=== PATIENT | female | born 1945 | race African-American/Black ===

== ENCOUNTER 2021-06-05 17:11 | Emergency (ER) | payer OTHER ==
[~2021-06-05] VITALS: Ht 157.5 cm; Wt 45.4 kg
--- NOTE | ~2021-06-05 | EMS ---
[address] [address] EMS Patient Care Report Name: KIRT PEACOCK Room #: DEP ARIEL Colón#: [id number] Admission: 06/05/21 Attend Phys: Discharge: 06/05/21 Date of : 47 Report #: [id number] THIS REPORT FOR: //name// Report Transmitted: 06/07/2021 10:16 EMS Care Summary [place], [place]/[facility] Incident [id number] @ 06/05/2021 16:52 Incident Location [facility] [address] [facility] Patient KIRT PEACOCK Female, 76 Years 1945 Patient Address [facility] [id number] [place] [address] Patient History Dialysis, Chief Complaint dialysis site bleeding Disposition Transported No Lights/Baxter Dispatch Reason Hemorrhage/Laceration Transported To [facility] Narrative Arrived to find pt sitting in chair in dialysis clinic. RN stated pt finished her dialysis at 1530 and her site was still bleeding. RN has a clamp on it and there is no bleeding around clamp. Pt has nasal cannula in however pt states it is only for during her treatment. Pt stands and sits on cot where she is secured with cot straps. Pt is in surgical mask. Pt placed in back of unit and transported without incident. Care to RN. [address] [address] EMS Patient Care Report Name: KIRT PEACOCK Room #: DEP [facility]#: [id number] Admission: 06/05/21 Attend Phys: Discharge: 06/05/21 Date of : 47 Report #: [id number] Initial Vitals @17:03P: 83,BP: 187/105,SpO2: 99, @17:04P: 84,R: 18,BP: 184/83,Pain: 0/10,GCS: 15,Glucose: 193,CO: 2,SpO2: 100,Revised Trauma: 12, Assessments @17:01MENTAL:Place Oriented,Time Oriented,Person Oriented,Event Oriented,SKIN:HEENT:Head/Face: No Abnormalities,Eyes: No Abnormalities,Neck/Airway: No Abnormalities,LUNG SOUNDS:General: No Abnormalities,Left Upper: No Abnormalities,Right Upper: No Abnormalities,Left Lower: No Abnormalities,Right Lower: No Abnormalities,ABDOMEN:General: No Abnormalities,Left Upper: No Abnormalities,Right Upper: No Abnormalities,Left Lower: No Abnormalities,Right Lower: No Abnormalities,PELVIS//GI:No Abnormalities,EXTREMITIES:Left Arm: Other,Right Arm: No Abnormalities,Left Leg: No Abnormalities,Right Leg: No Abnormalities,PULSE:NEURO:No Abnormalities, Impression Hemorrhage Procedures @17:01 ALS Assessment Response: UnchangedSucceeded Timeline 16:50,Call Received 16:50,Dispatch Notified 16:52,Dispatched 16:53,En Route 16:58,On Scene 17:00,At Patient 17:01,ALS Assessment,Response: UnchangedSucceeded, 17:03,BP: 187/105 M,PULSE: 83,RR: R,SPO2: 99 Ox,ETCO2: ,BG: ,PAIN: ,GCS: , 17:04,BP: 184/83 M,PULSE: 84,RR: 18 R,SPO2: 100 Ox,ETCO2: ,B,PAIN: 0,GCS: 15, 17:06,Depart Scene 17:09,At Destination 17:17,Call Closed Disclaimer v1.1 Copyright 2021 [employer] This EMS Care Summary contains data elements from the applicable legal record (which may be displayed differently). It is designed to provide pertinent information for the following purposes: continuity of care, clinical quality, and state data reporting. The complete legal record is available to ED staff and administrators of the receiving hospital in [employer] Patient Tracker. All data is provided "as is."
[2021-06-05 19:38] VITALS: BP 169/66
== END 2021-06-05 20:11 | disposition home or self-care (01) ==
LOC: ER 17:11
DX: S61.531A Puncture wound without foreign body of right wrist, initial encounter (principal); Z88.0 Allergy status to penicillin; Z88.1 Allergy status to other antibiotic agents; Z88.6 Allergy status to analgesic agent; Z88.8 Allergy status to other drugs, medicaments and biological substances; X58.XXXA Exposure to other specified factors, initial encounter; Y93.89 Activity, other specified; Y92.89 Other specified places as the place of occurrence of the external cause; Y99.8 Other external cause status